=== PATIENT | female | born 1990 | race Two or more races ===

== ENCOUNTER 2020-10-16 09:08 | Observation (INO) | payer MEDICAID, OTHER ==
[~2020-10-16] VITALS: Ht 162.6 cm; Wt 75.7 kg
[2020-10-16] MEDS ORDERED: PREN-96 PO (09:35)
== END 2020-10-16 10:18 | disposition home or self-care (01) ==
LOC: LDRP 09:08
PROVIDERS: ADMIT Specialist; ATTEND Specialist
DX: O40.3XX0 Polyhydramnios, third trimester, not applicable or unspecified (principal); Z3A.29 29 weeks gestation of pregnancy
CPT/HCPCS: 59025; 76818; 81002; G0378

== ENCOUNTER 2020-10-23 09:26 | Observation (INO) | payer MEDICAID ==
[~2020-10-23] VITALS: Ht 162.6 cm; Wt 75.7 kg
[~2020-10-23 09:26] MED LIST: PREN-96 PO
== END 2020-10-23 11:43 | disposition home or self-care (01) ==
LOC: LDRP 09:26
PROVIDERS: ADMIT Specialist; ATTEND Specialist
DX: O40.3XX0 Polyhydramnios, third trimester, not applicable or unspecified (principal); Z3A.30 30 weeks gestation of pregnancy
CPT/HCPCS: 59025; 76818; 81002; G0378

== ENCOUNTER 2020-10-27 11:05 | Observation (INO) | payer MEDICAID | END 2020-10-27 13:00 | disposition home or self-care (01) | LOC: LDRP 11:05 | PROVIDERS: ADMIT Specialist; ATTEND Specialist | DX: O40.3XX0 Polyhydramnios, third trimester, not applicable or unspecified (principal); Z3A.30 30 weeks gestation of pregnancy | CPT/HCPCS: 59025; 76818; 81002; G0378 ==

== ENCOUNTER 2020-11-03 10:29 | Observation (INO) | payer MEDICAID ==
[~2020-11-03] VITALS: Ht 162.6 cm; Wt 77.1 kg
== END 2020-11-03 11:43 | disposition home or self-care (01) ==
LOC: LDRP 10:29
PROVIDERS: ADMIT Obstetrics & Gynecology; ATTEND Obstetrics & Gynecology
DX: O40.3XX0 Polyhydramnios, third trimester, not applicable or unspecified (principal); Z3A.31 31 weeks gestation of pregnancy
CPT/HCPCS: 59025; 76818; 81002; G0378

== ENCOUNTER 2020-11-10 08:58 | Observation (INO) | payer MEDICAID | END 2020-11-10 10:50 | disposition home or self-care (01) | LOC: LDRP 08:58 | PROVIDERS: ADMIT Obstetrics & Gynecology; ATTEND Obstetrics & Gynecology | DX: O40.3XX0 Polyhydramnios, third trimester, not applicable or unspecified (principal); Z3A.32 32 weeks gestation of pregnancy | CPT/HCPCS: 59025; 76818; 81002; G0378 ==

== ENCOUNTER → 2020-12-02 | Outpatient (CLI) | payer MEDICAID ==
[2020-12-02 14:53] LABS: Basophils # (auto) 0 10 ^3/uL (0-0.2); Basophils % (auto) 0.5 % (0.0-2.0); Eosinophils # (auto) 0.2 10 ^3/uL (0-0.8); Eosinophils % (auto) 2.5 % (0.0-7.0); Hematocrit 36.4 % (36.0-46.0); Hemoglobin 12.3 g/dL (12.2-16.2); Lymphocytes # (auto) 1.6 10 ^3/uL (0.4-5.4); Lymphocytes % (auto) 16.7 % (10.0-50.0); Mean Corpuscular Hemoglobin 29.7 pg (28.0-32.0); Mean Corpuscular Hgb Conc. 33.9 g/dL (32.0-36.0); Mean Corpuscular Volume 87.8 fL (80.0-100.0); Monocytes # (auto) 0.6 10 ^3/uL (0-1.3); Monocytes % (auto) 6.3 % (0.0-12.0); Neutrophils # (auto) 6.9 10 ^3/uL (1.6-8.6); Nucleated Red Blood Cells % 0.1 %; Platelet Count (auto) 179 10^3/uL (140-450); Red Blood Cells 4.14 10^6/uL (4.0-5.20); Red Cell Distribution Width 13.3 % (11.8-14.3); White Blood Cell 9.4 10^3/uL (4.4-10.8)
[2020-12-03 06:06] LABS: RPR Non Reactive (Non Reactive)
== END | disposition home or self-care (01) ==
LOC: LAB 14:38
PROVIDERS: ATTEND Obstetrics & Gynecology
DX: Z34.93 Encounter for supervision of normal pregnancy, unspecified, third trimester (principal); Z3A.35 35 weeks gestation of pregnancy
CPT/HCPCS: 36415; 85025; 86592; 86762

== ENCOUNTER 2020-12-31 08:40 | Observation (INO) | payer MEDICAID | END 2020-12-31 10:25 | disposition home or self-care (01) | LOC: LDRP 08:40 | PROVIDERS: ADMIT Specialist; ATTEND Specialist | DX: O41.03X0 Oligohydramnios, third trimester, not applicable or unspecified (principal); O62.9 Abnormality of forces of labor, unspecified; Z3A.40 40 weeks gestation of pregnancy | CPT/HCPCS: 59025; 76818; 81002; G0378 ==

== ENCOUNTER 2021-01-02 06:40 | Observation (INO) | payer MEDICAID | END 2021-01-02 08:35 | disposition home or self-care (01) | LOC: LDRP 06:40 | PROVIDERS: ADMIT Obstetrics & Gynecology; ATTEND Obstetrics & Gynecology | DX: O62.9 Abnormality of forces of labor, unspecified (principal); O48.0 Post-term pregnancy; Z3A.40 40 weeks gestation of pregnancy | CPT/HCPCS: 59025; 76818; 81002; G0378 ==

== ENCOUNTER 2021-01-02 16:45 | Inpatient (IN) | payer MEDICAID ==
[~2021-01-02] VITALS: Ht 162.6 cm; Wt 81.6 kg
[2021-01-02] MEDS ORDERED: DERMOPLAST 60ML BOTTLE TOP PRN (20:00)
[2021-01-02] MEDS ORDERED: PROMETHAZINE HCL 25 MG/ML 1ML IM PRN (20:00)
[2021-01-02] MEDS ORDERED: LIDOCAINE 2%HCL (LOCAL ANESTH.) INJ 20ML MDV IJ PRN (20:00)
[2021-01-02] MEDS ORDERED: WITCH HAZEL-GLYCERIN PAD TOP PRN (20:00)
[2021-01-02] MEDS ORDERED: BUTORPHANOL TARTRATE 2 MG/1 ML VIAL IV PRN (20:00)
[2021-01-02] MEDS ORDERED: LACTATED RINGER'S 1,000 ML IV SCH (20:00)
[2021-01-02] MEDS ORDERED: PHISODERM TOP SOLN 240ML BTL TOP PRN (20:00)
[2021-01-02 20:57] LABS: Basophils # (auto) 0 10 ^3/uL (0-0.2); Basophils % (auto) 0.2 % (0.0-2.0); Eosinophils # (auto) 0 10 ^3/uL (0-0.8); Eosinophils % (auto) 0.1 % (0.0-7.0); Hematocrit 38.6 % (36.0-46.0); Hemoglobin 13.3 g/dL (12.2-16.2); Lymphocytes % (auto) 7.1 % (10.0-50.0); Mean Corpuscular Hemoglobin 30.3 pg (28.0-32.0); Mean Corpuscular Hgb Conc. 34.4 g/dL (32.0-36.0); Mean Corpuscular Volume 88.1 fL (80.0-100.0); Monocytes # (auto) 0.6 10 ^3/uL (0-1.3); Monocytes % (auto) 4.4 % (0.0-12.0); Neutrophils # (auto) 13.1 10 ^3/uL (1.6-8.6); Neutrophils % (auto) 88.2 % (37.0-80.0); Nucleated Red Blood Cells % 0.1 %; Platelet Count (auto) 140 10^3/uL (140-450); Red Blood Cells 4.38 10^6/uL (4.0-5.20); Red Cell Distribution Width 13.7 % (11.8-14.3); White Blood Cell 14.8 10^3/uL (4.4-10.8)
[2021-01-02] MEDS: BUTORPHANOL TARTRATE 2 MG/1 ML VIAL IV PRN (21:09)
[2021-01-02 21:10] LABS: INR 0.88 (0.9-1.15); Partial Thromboplastin Time 27.6 sec (23.0-31.2)
[2021-01-02 21:12] LABS: Albumin 2.9 g/dL (3.4-5.0); BUN/Creatinine Ratio 14.3; Calcium 8.7 mg/dL (8.5-10.1); Potassium 3.8 mmol/L (3.5-5.1)
[2021-01-02 21:14] LABS: Bilirubin, Total 0.4 mg/dL (0.2-1.0); Total Protein 7.2 g/dL (6.4-8.2)
[2021-01-03] VITALS (13 sets, daily range): BP systolic 103–124; BP diastolic 55–74
[2021-01-03] MEDS: BUTORPHANOL TARTRATE 2 MG/1 ML VIAL IV PRN (02:55)
[2021-01-03 04:08] LABS: Urine Amorphous Crystal FEW /hpf (None Seen); Urine Bacteria NONE SEEN /hpf (None Seen); Urine Blood 3+ /uL (Negative); Urine Specific Gravity 1.004 (1.001-1.035); Urine WBC 6 /hpf (0 - 5)
[2021-01-03 04:19] LABS: Alcohol, Urine < 3.0 mg/dL (0-10); Amphetamine Screen, Urine NEGATIVE (NEGATIVE); Barbiturate Scree,Urine NEGATIVE (NEGATIVE); Benzodiazephine Screen, Urine NEGATIVE (NEGATIVE); Cannabinoid Screen, Urine NEGATIVE (NEGATIVE); Cocaine Screen, Urine NEGATIVE (NEGATIVE); Opiate Scree,Urine NEGATIVE (NEGATIVE); Phencyclidine Screen, Urine NEGATIVE (NEGATIVE)
[2021-01-03] MEDS ORDERED: TERBUTALINE SULFATE 1 MG/ML 1ML VIAL SC ONE (08:45)
[2021-01-03] MEDS ORDERED: METHYLERGONOVINE MALEATE 0.2 MG/ML AMP IM PRN (08:45)
[2021-01-03] MEDS ORDERED: miSOPROStol 100 mcg TAB SL PRN (08:45)
[2021-01-03] MEDS ORDERED: LACT. RINGERS/OXYTOCIN 20UNITS 1,000 ML IV SCH (08:45)
[2021-01-03] MEDS ORDERED: LACT. RINGERS/OXYTOCIN 20UNITS 500 ML IV ONE ×2 (08:45→09:15)
[2021-01-03] MEDS ORDERED: miSOPROStol 100 mcg TAB PR PRN (08:45)
[2021-01-03] MEDS ORDERED: CARBOPROST TROMETHAMINE 250 MCG/1ML VIAL IM PRN (08:45)
[2021-01-03] MEDS ORDERED: ceFAZolin 1GM/50ML 50 ML IV ONE (10:45)
[2021-01-03] MEDS ORDERED: LACTATED RINGER'S 1,000 ML IV ONE (10:45)
[2021-01-03] MEDS ORDERED: LACTATED RINGER'S 1,000 ML IV SCH (10:45)
[2021-01-03] MEDS ORDERED: fentaNYL CITRATE 100 MCG/2 ML VL ONE (11:01)
[2021-01-03] MEDS ORDERED: MORPHINE SULF(PF) 0.5MG/ML 10ML VIAL ONE (11:01)
[2021-01-03] MEDS ORDERED: CARBOPROST TROMETHAMINE 250 MCG/1ML VIAL IM ONE (11:33)
[2021-01-03] MEDS ORDERED: METHYLERGONOVINE MALEATE 0.2 MG/ML AMP IM ONE (11:33)
[2021-01-03] MEDS ORDERED: LACT. RINGERS/OXYTOCIN 20UNITS 1,000 ML IV ONE (12:45)
[2021-01-03] MEDS ORDERED: MORPHINE SULFATE 4 MG/ML SYR/VIAL IV PRN (12:45)
[2021-01-03] MEDS ORDERED: ONDANSETRON HCL 4 MG/2 ML VIAL IV PRN (12:45)
[2021-01-03] MEDS ORDERED: KETOROLAC TROMETH 30 MG/ML 1ML VIAL IV PRN (13:00)
[2021-01-03] MEDS ORDERED: NALBUPHINE HCL 10 MG/1ml INJECTION SUBCUT ONE (13:00)
[2021-01-03] MEDS ORDERED: ceFAZolin 1GM/50ML 50 ML IV SCH ×2 (14:00→19:00)
[2021-01-03] MEDS: LACTATED RINGER'S 1,000 ML IV SCH (18:15)
[2021-01-03] MEDS: ceFAZolin 1GM/50ML 50 ML IV SCH (18:35)
[2021-01-03 22:23] LABS: Basophils # (auto) 0 10 ^3/uL (0-0.2); Basophils % (auto) 0.2 % (0.0-2.0); Eosinophils # (auto) 0 10 ^3/uL (0-0.8); Eosinophils % (auto) 0.1 % (0.0-7.0); Hematocrit 33.3 % (36.0-46.0); Hemoglobin 11.6 g/dL (12.2-16.2); Lymphocytes # (auto) 1.5 10 ^3/uL (0.4-5.4); Lymphocytes % (auto) 10.7 % (10.0-50.0); Mean Corpuscular Hemoglobin 30.5 pg (28.0-32.0); Mean Corpuscular Hgb Conc. 34.8 g/dL (32.0-36.0); Mean Corpuscular Volume 87.7 fL (80.0-100.0); Monocytes # (auto) 0.8 10 ^3/uL (0-1.3); Monocytes % (auto) 5.6 % (0.0-12.0); Neutrophils # (auto) 11.5 10 ^3/uL (1.6-8.6); Neutrophils % (auto) 83.4 % (37.0-80.0); Platelet Count (auto) 137 10^3/uL (140-450); White Blood Cell 13.7 10^3/uL (4.4-10.8)
[2021-01-03] MEDS ORDERED: diphenhdrAMINE HCL 50 MG/1 ML VL IV PRN (23:45)
[2021-01-03] MEDS ORDERED: ACETAMINOPHEN IV 1000 MG/100ML (10MG/ML) IV PRN (23:45)
[2021-01-04] VITALS (17 sets, daily range): BP systolic 107–121; BP diastolic 53–72
[2021-01-04] MEDS: ceFAZolin 1GM/50ML 50 ML IV SCH ×3 (03:09→18:43)
[2021-01-04 04:06] LABS: RPR Non Reactive (Non Reactive)
[2021-01-04] MEDS: LACTATED RINGER'S 1,000 ML IV SCH (05:58)
[2021-01-04] MEDS ORDERED: BISACODYL 10 MG RECT SUPP PR PRN (07:15)
[2021-01-04] MEDS ORDERED: LACTATED RINGER'S 1,000 ML IV SCH (07:15)
[2021-01-04] MEDS: HYDROcodone-ACET 5/325MG TAB PO PRN ×3 (08:20→22:06)
[2021-01-04 08:40] LABS: Basophils # (auto) 0.1 10 ^3/uL (0-0.2); Basophils % (auto) 0.5 % (0.0-2.0); Eosinophils # (auto) 0 10 ^3/uL (0-0.8); Eosinophils % (auto) 0.3 % (0.0-7.0); Hematocrit 32.2 % (36.0-46.0); Hemoglobin 10.8 g/dL (12.2-16.2); Lymphocytes # (auto) 1.2 10 ^3/uL (0.4-5.4); Mean Corpuscular Hemoglobin 29.8 pg (28.0-32.0); Mean Corpuscular Hgb Conc. 33.6 g/dL (32.0-36.0); Mean Corpuscular Volume 88.7 fL (80.0-100.0); Monocytes # (auto) 0.7 10 ^3/uL (0-1.3); Monocytes % (auto) 5.9 % (0.0-12.0); Neutrophils # (auto) 10.2 10 ^3/uL (1.6-8.6); Neutrophils % (auto) 83.3 % (37.0-80.0); Platelet Count (auto) 130 10^3/uL (140-450); Red Blood Cells 3.64 10^6/uL (4.0-5.20); Red Cell Distribution Width 14.3 % (11.8-14.3); White Blood Cell 12.2 10^3/uL (4.4-10.8)
[2021-01-04] MEDS: FERROUS SULFATE 325mg EC TAB PO SCH ×2 (09:35→22:05)
[2021-01-04] MEDS: DOCUSATE CALCIUM 240 MG CAP PO SCH (09:35)
[2021-01-04] MEDS: DOCUSATE SOD 100 MG CAP PO SCH ×2 (09:36→22:05)
[2021-01-04] MEDS: IBUPROFEN 800 MG TAB PO PRN ×2 (11:47→19:30)
[2021-01-04] MEDS: SIMETHICONE 80 MG CHEWABLE TABLET PO SCH ×3 (12:00→22:05)
[2021-01-05] MEDS: ceFAZolin 1GM/50ML 50 ML IV SCH (02:55)
[2021-01-05 03:00] VITALS: BP 118/46
[2021-01-05] MEDS: IBUPROFEN 800 MG TAB PO PRN ×3 (03:19→20:33)
[2021-01-05] MEDS: SIMETHICONE 80 MG CHEWABLE TABLET PO SCH ×4 (05:24→22:23)
[2021-01-05] MEDS: HYDROcodone-ACET 5/325MG TAB PO PRN ×3 (05:24→22:24)
[2021-01-05 07:00] VITALS: BP 115/72
[2021-01-05] MEDS: DOCUSATE CALCIUM 240 MG CAP PO SCH (09:39)
[2021-01-05] MEDS: DOCUSATE SOD 100 MG CAP PO SCH ×2 (09:39→22:23)
[2021-01-05] MEDS: FERROUS SULFATE 325mg EC TAB PO SCH ×2 (09:39→22:23)
[2021-01-05 10:58] VITALS: BP 129/80
[2021-01-05 15:00] VITALS: BP 136/70
[2021-01-05 19:15] VITALS: BP 117/49
[2021-01-05 22:47] VITALS: BP 114/56
[2021-01-06 02:42] VITALS: BP 110/42
[2021-01-06] MEDS: SIMETHICONE 80 MG CHEWABLE TABLET PO SCH (06:38)
[2021-01-06 06:43] VITALS: BP 116/52
[2021-01-06] MEDS: IBUPROFEN 800 MG TAB PO PRN (07:34)
== END 2021-01-06 10:10 | disposition home or self-care (01) | DRG 540 ==
LOC: LDRP 16:45 → OBSVTOIN 16:45 → LDRP 17:25
PROVIDERS: ADMIT Obstetrics & Gynecology; ATTEND Obstetrics & Gynecology
PROC: 10D00Z1 Extraction of Products of Conception, Low, Open Approach (ICD-10-PCS; principal; 2021-01-03 11:18)
DX: O76 Abnormality in fetal heart rate and rhythm complicating labor and delivery (principal); O62.1 Secondary uterine inertia; Z20.822 Contact with and (suspected) exposure to COVID-19; Z37.0 Single live birth; Z3A.40 40 weeks gestation of pregnancy
CPT/HCPCS: 36415; 59025; 76818; 80053; 80307; 81001; 81002; 84112; 85025; 85610; 85730; 86592; 86850; 86900; 86901; 87426; 94760; 94762; 96360; 96361; 96365; 96366; 96372; 96374; G0378; J0131; J0690; J2590

== ENCOUNTER 2022-03-17 15:03 | Emergency (ER) | payer MEDICAID ==
[~2022-03-17] VITALS: Ht 157.5 cm; Wt 67.2 kg
[2022-03-17 15:46] VITALS: BP 126/41
[2022-03-17 16:37] LABS: Basophils # (auto) 0.1 10 ^3/uL (0-0.2); Basophils % (auto) 1.1 % (0.0-2.0); Eosinophils # (auto) 0.3 10 ^3/uL (0-0.8); Hematocrit 38.6 % (36.0-46.0); Hemoglobin 12.5 g/dL (12.2-16.2); Lymphocytes # (auto) 1.9 10 ^3/uL (0.4-5.4); Lymphocytes % (auto) 27.7 % (10.0-50.0); Mean Corpuscular Hemoglobin 28.6 pg (28.0-32.0); Mean Corpuscular Hgb Conc. 32.4 g/dL (32.0-36.0); Mean Corpuscular Volume 88.3 fL (80.0-100.0); Monocytes # (auto) 0.5 10 ^3/uL (0-1.3); Monocytes % (auto) 6.8 % (0.0-12.0); Neutrophils % (auto) 60.4 % (37.0-80.0); Nucleated Red Blood Cells % 0.1 %; Red Blood Cells 4.37 10^6/uL (4.0-5.20); Red Cell Distribution Width 14.4 % (11.8-14.3); White Blood Cell 6.7 10^3/uL (4.4-10.8)
[2022-03-17 16:59] LABS: Urine Bacteria NONE SEEN /hpf (None Seen); Urine Blood 3+ /uL (Negative); Urine Specific Gravity 1.023 (1.001-1.035); Urine WBC 4 /hpf (0 - 5)
== END 2022-03-17 20:54 | disposition home or self-care (01) ==
LOC: ER 15:03
DX: N93.8 Other specified abnormal uterine and vaginal bleeding (principal)
CPT/HCPCS: 36415; 76856; 81001; 84702; 85025